=== PATIENT | female | born 1985 ===

== ENCOUNTER 2018-04-21 01:32 | Emergency (ER) | payer SELFPAY ==
[2018-04-21 01:33] VITALS: TEMP 98.3
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
[2018-04-21 05:11] VITALS: BP 126/78; PULSE 100; RESP 20
[2018-04-21 06:06] VITALS: O2SAT 95
== END 2018-04-21 03:45 | disposition home or self-care (01) ==
LOC: C.ER 01:32
DX: F10.129 Alcohol abuse with intoxication, unspecified (principal)